=== PATIENT | male | born 1940 | race Caucasian/White ===

== ENCOUNTER 2020-09-13 08:27 | Inpatient (IN) | payer MEDICARE, SELFPAY ==
[2020-09-13 08:36] VITALS: BP 119/41; BP 136/84; PULSE 67; PULSE 86; RESP 18; TEMP 36.6; O2SAT 97; BMI 25.5
--- NOTE | 2020-09-13 08:39 | ECG_ITS ---
Test Reason : AMS Blood Pressure : / mmHG Vent. Rate : 069 BPM Atrial Rate : 069 BPM P-R Int : 156 ms QRS Dur : 106 ms QT Int : 438 ms P-R-T Axes : 056 -33 -14 degrees QTc Int : 469 ms Poor data quality Possible Normal sinus rhythm Left axis deviation Septal infarct , age undetermined ST & T wave abnormality, consider inferior ischemia Abnormal ECG No previous ECGs available Referred By: Chiqui Laguna Electronically Signed By:JANICE BLACKWELL MD
--- NOTE | 2020-09-13 08:39 | CT_ITS ---
EXAMINATION: CT CERVICAL SPINE WITHOUT CONTRAST; UNENHANCED CT OF THE HEAD. CLINICAL INFORMATION: Fall. Altered mental status. COMPARISON: None TECHNIQUE: Routine unenhanced CT of the head with multiple coronal and sagittal reformatted images; routine unenhanced CT of the cervical spine with multiple coronal and sagittal reformatted images. This CT examination was performed using dose optimization techniques as appropriate, variously including the following: *Automated exposure control *Adjustment of mA and/or kV according to patient size (this includes techniques or standardized protocols for targeted exams where dose is matched to indication/reason for exam; i.e. extremities or head) *Use of iterative reconstruction technique DLP: 1680 mGy-cm FINDINGS: CT head: Images are suboptimal secondary to motion artifact. Moderate diffuse commensurate prominence of ventricles and sulci is noted. No intracranial hemorrhage, tumors or acute infarcts are noted. Moderate periventricular white matter patchy hypodensities are visualized. Segmental calcific atherosclerosis is present in the cavernous portions of the internal carotid arteries and in the proximal vertebral segments of the vertebral arteries. Bilateral ocular lens extractions are identified. Mild focal subcutaneous reticulation is present in the left parietal region. No significant opacification of the visualized paranasal sinuses, mastoid air cells and middle ear cavities is identified. CT cervical spine: Images are suboptimal secondary to motion artifact. No fractures or acute appearing subluxations are noted. Multilevel intervertebral disc space narrowing and endplate osteophytosis is noted with prominent findings present at C3-C4 C5-C6 and C6-C7. Benign-appearing cystic and sclerotic changes are present in the dens in prominence of the pannus posterior to the dens is noted which may represent chronic arthropathic changes. Moderate bilateral carotid bulb calcific atherosclerotic plaques are visualized. Visualized lung apices are clear. CT/CT cervical spine wo con IMPRESSION: CT head: 1. No acute intracranial abnormalities. 2. Moderate white matter chronic small vessel ischemic disease and mild/moderate diffuse parenchymal volume loss the brain. 3. Mild focal extracranial left parietal soft tissue inflammatory changes. CT cervical spine: 1. No acute abnormalities identified. 2. Multilevel chronic spondylosis. 3. Partial visualization of moderate bilateral carotid bulb calcific atherosclerotic plaques.
--- NOTE | 2020-09-13 08:47 | ED.AMS ---
HPI - Altered Mental Status General Chief Complaint: Altered Mental Status Stated Complaint: fall Time Seen by Provider: 09/13/20 08:36 History of Present Illness HPI narrative: Patient is a 80-year-old male with a history of dementia history of agitation. [facility]. Patient is sent to a nearby skilled nursing facility. Noted to have low blood pressure. Question diminished mental status. e agitation. Sent in for further evaluation. No fever no chills no coughing or congestion. No vomiting. Patient from home. No bloody stool. Question started on Remeron last night. MD complaint: altered mental status Related Data Home Medications Medication Instructions Recorded Confirmed Humalog U-100 Insulin 4 units SUBCUT TIDWMEAL 09/13/20 09/13/20 acetaminophen 650 mg PO Q6H PRN MDD 3 gm 09/13/20 09/13/20 aspirin 325 mg PO DAILY 09/13/20 09/13/20 bisacodyl 10 mg CO DAILY PRN 09/13/20 09/13/20 haloperidol [Haldol] 2 mg PO TID PRN 09/13/20 09/13/20 insulin glargine [Lantus Solostar 6 unit SUBCUT DAILY 09/13/20 09/13/20 U-100 Insulin] lorazepam 1 mg PO BEDTIME 09/13/20 09/13/20 lorazepam 1 mg PO BID PRN 09/13/20 09/13/20 magnesium hydroxide [Milk of 30 ml PO DAILY PRN 09/13/20 09/13/20 Magnesia] metoprolol tartrate 25 mg PO BID 09/13/20 09/13/20 mirtazapine 7.5 mg PO BEDTIME 09/13/20 09/13/20 nystatin 100,000 unit TOPICAL BID 09/13/20 09/13/20 Allergies Allergy/AdvReac Type Severity Reaction Status Date / Time Hpugajv-Hcf-Qzx Reductase Allergy Intermediate unknown Verified 09/13/20 08:43 Inhibitor Review of Systems Review of Systems: Unable to obtain review systems secondary to patient's condition Yes Unobtainable due to mental condition PMFSH Past Medical History Medical History (Updated 09/13/20 @ 12:13 by Chiqui Laguna MD) CKD (chronic kidney disease), stage III Dementia Diabetes Social History Social History Advance Directives: No Advance Directives Information Provided: No Physical Exam Vital Signs: Vital Signs: Last Vital Signs Temp 97.8 F 09/13/20 08:36 Pulse 71 09/13/20 11:45 Resp 16 09/13/20 11:45 BP 162/63 H 09/13/20 11:45 Pulse Ox 100 09/13/20 11:45 Body Mass Index 25.5 Appearance: Alert. Oriented to self only. No acute distress. Eyes: Pupils equal, round and reactive to light. ENT: Pharynx normal. Neck: Normal inspection. Neck supple. No lymph nodes noted. No crepitus CVS: Normal heart rate and rhythm. Pulses normal. Normal S1 and S2 Respiratory: No respiratory distress. Breath sounds normal. No Wheezing. No rales Abdomen: Soft and nontender. No rigidity. No distention. good BS x4 Skin: Skin warm and dry. Normal skin color. Normal skin turgor. Extremities: No lower extremity edema. Neurovascular intact to all extremities. No Lacerations. No Rash Neuro: Oriented x1. No motor deficit. No sensory deficit. Moving all extermities. No slurred speech MDM - Altered Mental Status MDM Narrative Medical decision making narrative: Patient's sugar was greater than 100 no evidence for hypoglycemia. CT scan of the head did not show any acute evidence of bleeding. No mass. Patient's electrolytes showed an elevation in BUN and creatinine 68 and 3. Consistent with having dehydration. Patient's old labs from [place] was reviewed. It showed an elevated BUN and creatinine of 50 and 1.9. No coughing congestion upper respiratory symptom, but a COVID test was sent. Patient will be given IV fluid hydration. Will admit for further evaluation for possible syncope dehydration hypotension. Will obtain a urine when available. Chest x-ray showed no focal infiltrate Lab Data Result diagrams: 09/13/20 09:03 09/13/20 09:03 Labs: Lab Results 09/13/20 09/13/20 09/13/20 Range/Units 09:03 09:03 09:03 WBC 10.2 (4.8-10.8) X10*3/uL RBC 3.63 L (4.60-5.80) X10*6/uL Hgb 10.8 L (14.0-18.0) g/dl Hct 32.5 L (42-52) % MCV 89.5 (80-98) fL MCH 29.8 (27.0-33.0) pg MCHC 33.2 (31.0-36.0) g/dl RDW 12.0 (11.0-16.0) % Plt Count 231 (160-400) X10*3/uL MPV 9.8 (9.4-12.4) fL Immature Gran % (Auto) 0.6 H (0.0-0.4) % Neut % (Auto) 81.0 H (45-73) % Lymph % (Auto) 12.3 L (20-40) % [place] % (Auto) 5.6 (2-11) % Eos % (Auto) 0.3 (0-4) % Baso % (Auto) 0.2 (0-2) % Lymph # (Auto) 1.3 (1.2-4.9) X10*3/uL [place] # (Auto) 0.6 (0.1-1.2) X10*3/uL Eos # (Auto) 0.0 (0.0-0.4) X10*3/uL Baso # (Auto) 0.0 (0.0-0.2) X10*3/uL Abs Immat Gran (auto) 0.06 H (0.00-0.03) X10*3/uL Absolute Neuts (auto) 8.3 (2.0-8.3) X10*3/uL Absolute Nucleated RBC 0.000 (0.0-0.012) X10*3/uL Nucleated RBC % (auto) 0.0 (0.0-0.2) /100WBC PT (10.8-13.0) SEC INR (0.9-1.1) Sodium 139 (135-145) mmol/L Potassium 5.1 (3.3-5.1) mmol/l Chloride 101 (96-108) mmol/L Carbon Dioxide 27 (22-29) mmol/L Anion Gap 16 (12-20) BUN 68 H (9-16) mg/dL Creatinine 3.10 H (0.5-1.4) mg/dL Estim Creat Clear Calc 22.1 Estimated GFR 20 Random Glucose 210 H (60-115) mg/dL Calcium 8.6 (8.4-10.2) mg/dL Total Bilirubin 0.8 (0.0-1.0) mg/dL Direct Bilirubin 0.4 (0.0-0.5) mg/dL AST 28 (5-37) U/L ALT 32 (0-40) U/L Alkaline Phosphatase 103 (39-117) U/L Troponin I High Sens 43.9 H (<3.5-35.0) ng/L Total Protein 6.8 (6.5-8.0) g/dL Albumin 3.8 (3.5-5.0) g/dL Urine Color Urine Appearance Urine pH (5.0-8.0) Ur Specific [place] (1.005-1.025) Urine Protein (NEG-TRACE) MG/DL Urine Glucose (UA) (NEG) MG/DL Urine Ketones (NEG) MG/DL Urine Blood (NEG) Urine Nitrite (NEG) Ur Leukocyte Esterase (NEG) Urine RBC (0) /HPF Urine WBC (0-4) /HPF Ur Squamous Epith Cells /LPF Amorphous Sediment /LPF Urine Bacteria /LPF COVID-19 ([facility]) (Negative) COVID-19 Clin Com 09/13/20 09/13/20 09/13/20 Range/Units 09:04 10:13 10:54 WBC (4.8-10.8) X10*3/uL RBC (4.60-5.80) X10*6/uL Hgb (14.0-18.0) g/dl Hct (42-52) % MCV (80-98) fL MCH (27.0-33.0) pg MCHC (31.0-36.0) g/dl RDW (11.0-16.0) % Plt Count (160-400) X10*3/uL MPV (9.4-12.4) fL Immature Gran % (Auto) (0.0-0.4) % Neut % (Auto) (45-73) % Lymph % (Auto) (20-40) % [place] % (Auto) (2-11) % Eos % (Auto) (0-4) % Baso % (Auto) (0-2) % Lymph # (Auto) (1.2-4.9) X10*3/uL [place] # (Auto) (0.1-1.2) X10*3/uL Eos # (Auto) (0.0-0.4) X10*3/uL Baso # (Auto) (0.0-0.2) X10*3/uL Abs Immat Gran (auto) (0.00-0.03) X10*3/uL Absolute Neuts (auto) (2.0-8.3) X10*3/uL Absolute Nucleated RBC (0.0-0.012) X10*3/uL Nucleated RBC % (auto) (0.0-0.2) /100WBC PT 13.3 H (10.8-13.0) SEC INR 1.1 (0.9-1.1) Sodium (135-145) mmol/L Potassium (3.3-5.1) mmol/l Chloride (96-108) mmol/L Carbon Dioxide (22-29) mmol/L Anion Gap (12-20) BUN (9-16) mg/dL Creatinine (0.5-1.4) mg/dL Estim Creat Clear Calc Estimated GFR Random Glucose (60-115) mg/dL Calcium (8.4-10.2) mg/dL Total Bilirubin (0.0-1.0) mg/dL Direct Bilirubin (0.0-0.5) mg/dL AST (5-37) U/L ALT (0-40) U/L Alkaline Phosphatase (39-117) U/L Troponin I High Sens (<3.5-35.0) ng/L Total Protein (6.5-8.0) g/dL Albumin (3.5-5.0) g/dL Urine Color YELLOW Urine Appearance CLEAR Urine pH 5.5 (5.0-8.0) Ur Specific [place] 1.025 (1.005-1.025) Urine Protein 1+ H (NEG-TRACE) MG/DL Urine Glucose (UA) NEG (NEG) MG/DL Urine Ketones NEG (NEG) MG/DL Urine Blood 3+ H (NEG) Urine Nitrite NEG (NEG) Ur Leukocyte Esterase NEG (NEG) Urine RBC 30-49 H (0) /HPF Urine WBC 0 (0-4) /HPF Ur Squamous Epith Cells NONE /LPF Amorphous Sediment 2+ /LPF Urine Bacteria NONE /LPF COVID-19 ([facility]) Negative (Negative) COVID-19 Clin Com See Note Critical Care Time Critical Care Time Total Critical Care Time: 40 Attestation: I have personally provided 40 minutes of critical care time exclusive of time spent on separately billable procedures. Time includes review of lab data, radiology results, discussion with consultants, and monitoring for potential decompensation. Interventions were performed as documented above Discharge Plan Discharge Clinical Impression: Dementia, Hypotension, Renal failure Patient Disposition: Admitted As Inpatient Prescriptions: No Action Humalog U-100 Insulin 4 units subcut TIDWMEAL RF: 0 nystatin 100,000 unit/gram Powder 100,000 unit TOPICAL BID RF: 0 aspirin 325 mg Tablet 325 mg PO DAILY RF: 0 mirtazapine 7.5 mg Tablet 7.5 mg PO BEDTIME RF: 0 Lantus Solostar U-100 Insulin 100 unit/mL (3 mL) Insulin Pen 6 unit SUBCUT DAILY RF: 0 metoprolol tartrate 25 mg PO BID RF: 0 lorazepam 1 mg Tablet 1 mg PO BEDTIME RF: 0 lorazepam 1 mg Tablet 1 mg PO BID PRN (Reason: Agitation) RF: 0 haloperidol [Haldol] 2 mg Tablet 2 mg PO TID PRN (Reason: Agitation) RF: 0 magnesium hydroxide [Milk of Magnesia] 400 mg/5 mL Suspension 30 ml PO DAILY PRN (Reason: Constipation) RF: 0 acetaminophen 325 mg Tablet 650 mg PO Q6H MDD 3 gm PRN (Reason: Fever Or Pain) RF: 0 bisacodyl 10 mg Suppository 10 mg CO DAILY PRN (Reason: Constipation) RF: 0
[2020-09-13 09:10] LABS: Basophils Percent Auto 0.2 % (0-2); Eosinophils Percent Auto 0.3 % (0-4); Hematocrit 32.5 % (42-52); Hemoglobin 10.8 g/dl (14.0-18.0); Imm Gran Abs Auto 0.06 X10*3/uL (0.00-0.03); Imm Gran Pct Auto 0.6 % (0.0-0.4); Lymphocytes Absolute Auto 1.3 X10*3/uL (1.2-4.9); Lymphocytes Percent Auto 12.3 % (20-40); MANUAL DIFF FLAG NO; Mean Corpuscular HGB Conc 33.2 g/dl (31.0-36.0); Mean Corpuscular Hemoglobin 29.8 pg (27.0-33.0); Mean Corpuscular Volume 89.5 fL (80-98); Mean Platelet Volume 9.8 fL (9.4-12.4); Monocytes Absolute Auto 0.6 X10*3/uL (0.1-1.2); Monocytes Percent Auto 5.6 % (2-11); Neutrophils Absolute Auto 8.3 X10*3/uL (2.0-8.3); Platelet Count 231 X10*3/uL (160-400); Red Blood Count 3.63 X10*6/uL (4.60-5.80); White Blood Count 10.2 X10*3/uL (4.8-10.8)
[2020-09-13 09:19] LABS: INTERNATIONAL NORM RATIO 1.1 (0.9-1.1); Prothrombin Time 13.3 SEC (10.8-13.0)
[2020-09-13 09:32] VITALS: BP 112/45; PULSE 63; RESP 14
--- NOTE | 2020-09-13 09:33 | PC.NURSE ---
PT IS LYING ON ED STRETCHER, HE IS VERBAL AT TIMES WITH NO CLEAR STATEMENT VSS HE HAD A CT SCAN, AWAITING RESULTS
[2020-09-13 09:35] LABS: Alanine Aminotransferase 32 U/L (0-40); Albumin Level 3.8 g/dL (3.5-5.0); Alkaline Phosphatase 103 U/L (39-117); Anion Gap 16 (12-20); Aspartate Amino Transferase 28 U/L (5-37); Bilirubin Direct 0.4 mg/dL (0.0-0.5); Bilirubin Total 0.8 mg/dL (0.0-1.0); Blood Urea Nitrogen 68 mg/dL (9-16); Calcium 8.6 mg/dL (8.4-10.2); Carbon Dioxide 27 mmol/L (22-29); Chloride 101 mmol/L (96-108); Creatinine Clr Calc Pharmacy 22.1; Estimated Glomerular Filt Rate 20; Glucose Random 210 mg/dL (60-115); Potassium 5.1 mmol/l (3.3-5.1); Sodium 139 mmol/L (135-145); Total Protein 6.8 g/dL (6.5-8.0)
[2020-09-13 10:27] LABS: Glucose Urine UA NEG (NEG); Leukocyte Esterase Urine NEG (NEG); Nitrite Urine NEG (NEG); PH 5.5 (5.0-8.0); Specific Gravity - Urine 1.025 (1.005-1.025); Urine Blood 3+ (NEG); Urine Ketones NEG (NEG); Urine Protein 1+ MG/DL (NEG-TRACE)
[2020-09-13 10:29] LABS: Appearance Urine CLEAR; Color Urine YELLOW
[2020-09-13 10:49] LABS: RBC Urine 30-49 /HPF (0); WBC Urine 0 /HPF (0-4)
[2020-09-13 10:50] LABS: Amorphous Sediment Urine 2+ /LPF
[2020-09-13] MEDS: 0.9 % Sodium Chloride 1,000 ML 999 ML IVCONT (10:51)
--- NOTE | 2020-09-13 10:54 | XR_ITS ---
EXAMINATION: XR CHEST CLINICAL INFORMATION: SOB. COMPARISON: None TECHNIQUE: Frontal view of the chest was obtained. FINDINGS: No significant abnormality is noted involving the heart, lungs, mediastinum, bony thorax or soft tissues. XR/XR chest 1V IMPRESSION: Unremarkable chest examination.
[2020-09-13 11:36] LABS: COVID-19 Test Negative (Negative)
[2020-09-13 11:45] VITALS: BP 162/63; PULSE 71; RESP 16; O2SAT 100
[2020-09-13 11:50] LABS: Troponin-I High Sensitivity 43.9 ng/L (<3.5-35.0)
[2020-09-13] MEDS: HaloperidoL 1 MG TABLET 2 MG PO ×2 (12:12→20:16)
[2020-09-13] MEDS: LORazepam 0.5 MG TABLET PO (12:12)
--- NOTE | 2020-09-13 12:13 | PC.NURSE ---
patient medicated with po ativan and haldol per provider order, pt does normally take this medication per nursing facility med req. will continue to monitor.
--- NOTE | 2020-09-13 12:50 | P.HPHOSP_ITS ---
History of Present Illness Date of Service: 09/13/20 Chief Complaint: unresponsive 80M sent in from a rehab for unresponsiveness and hypotension. Patient has advanced dementia. He had been living at home with his and daughter until August 27 2020. At that time patient started having aggressive behavior and was admitted to [facility]. He had been recently discharged to nursing home facility, at nursing home facility patient was agitated, had 2 falls, then had a period of unresponsiveness where his systolic blood pressure was in the 70s. Patient's notes that patient has issues with labile blood pressures, and has been taken off all blood pressure medications. It is unclear whether he is receiving metoprolol and nursing home facility. In ED patient's blood pressure is back to normal and he is alert and disoriented as his baseline. He was noted to have some acute kidney injury, with creatinine of 3.1, which is slightly above baseline of 1.8 to 2. Review of Systems Review of Systems: Constitutional: Denies fever, denies Chills Eyes: denies blurry vision ENT: denies sore throat CVS: denies chest pain Respiratory: Denies dyspnea GI: no abdominal pain : denies dysuria MSK: denies neck pain Skin: denies rash Neuro: denies specific motor weakness Psych: denies suicidal ideation Endocrine: denies heat/cold intoleratnce Hematologic: denies easy bleeding Allergy: denies hives PMFSH Medical History Anaplasmosis CKD (chronic kidney disease), stage IV Dementia Diabetes Orthostatic hypotension Family History Father Dementia Surgical History History of vitrectomy Social History Alcohol intake: never Smoking Status: Never smoker Use of substances other than those prescribed or required for medical reasons: No Advance Directives: No Advance Directives Information Provided: No Meds Allergies Allergy/AdvReac Type Severity Reaction Status Date / Time Zxsnvau-Fry-Lhj Reductase Allergy Intermediate unknown Verified 09/13/20 08:43 Inhibitor Home Medications Medication Instructions Recorded Confirmed Type Humalog U-100 Insulin 4 units SUBCUT TIDWMEAL 09/13/20 09/13/20 History acetaminophen 650 mg PO Q6H PRN MDD 3 gm 09/13/20 09/13/20 History aspirin 325 mg PO DAILY 09/13/20 09/13/20 History bisacodyl 10 mg VT DAILY PRN 09/13/20 09/13/20 History haloperidol [Haldol] 2 mg PO TID PRN 09/13/20 09/13/20 History insulin glargine [Lantus Solostar 6 unit SUBCUT DAILY 09/13/20 09/13/20 History U-100 Insulin] lorazepam 1 mg PO BEDTIME 09/13/20 09/13/20 History lorazepam 1 mg PO BID PRN 09/13/20 09/13/20 History magnesium hydroxide [Milk of 30 ml PO DAILY PRN 09/13/20 09/13/20 History Magnesia] metoprolol tartrate 25 mg PO BID 09/13/20 09/13/20 History mirtazapine 7.5 mg PO BEDTIME 09/13/20 09/13/20 History nystatin 100,000 unit TOPICAL BID 09/13/20 09/13/20 History Physical Exam Vital Signs and Narrative: Vital Signs: Last Vital Signs Temp 97.8 F 09/13/20 08:36 Pulse 71 09/13/20 11:45 Resp 16 09/13/20 11:45 BP 162/63 H 09/13/20 11:45 Pulse Ox 100 09/13/20 11:45 Body Mass Index 25.5 General: no acute distress HEENT: atraumatic Neck: normal to visual inspection CVS: S1, S2, RRR Resp: CTA bilateral Chest: non tender GI: soft, non tender, non distended : no CVA tenderness Skin: no rashes Extremities: no edema Neuro: disoriented, at baseline Psych: impaired insight Results Labs CBC and Chem 7: 09/13/20 09:03 09/13/20 09:03 Labs: Laboratory Results - last 24 hr 09/13/20 09/13/20 09/13/20 09:03 09:03 09:03 MCV 89.5 MCH 29.8 MCHC 33.2 RDW 12.0 Plt Count 231 MPV 9.8 Immature Gran % (Auto) 0.6 H Neut % (Auto) 81.0 H Lymph % (Auto) 12.3 L [place] % (Auto) 5.6 Eos % (Auto) 0.3 Baso % (Auto) 0.2 Lymph # (Auto) 1.3 [place] # (Auto) 0.6 Eos # (Auto) 0.0 Baso # (Auto) 0.0 Abs Immat Gran (auto) 0.06 H Absolute Neuts (auto) 8.3 Absolute Nucleated RBC 0.000 Nucleated RBC % (auto) 0.0 PT INR Anion Gap 16 Estim Creat Clear Calc 22.1 Estimated GFR 20 Random Glucose 210 H Calcium 8.6 Total Bilirubin 0.8 Direct Bilirubin 0.4 AST 28 ALT 32 Alkaline Phosphatase 103 Troponin I High Sens 43.9 H Total Protein 6.8 Albumin 3.8 Urine Color Urine Appearance Urine pH Ur Specific [place] Urine Protein Urine Glucose (UA) Urine Ketones Urine Blood Urine Nitrite Ur Leukocyte Esterase Urine RBC Urine WBC Ur Squamous Epith Cells Amorphous Sediment Urine Bacteria COVID-19 ([facility] CAR[facility]) COVID-19 [employer] Com 09/13/20 09/13/20 09/13/20 09:04 10:13 10:54 MCV MCH MCHC RDW Plt Count MPV Immature Gran % (Auto) Neut % (Auto) Lymph % (Auto) [place] % (Auto) Eos % (Auto) Baso % (Auto) Lymph # (Auto) [place] # (Auto) Eos # (Auto) Baso # (Auto) Abs Immat Gran (auto) Absolute Neuts (auto) Absolute Nucleated RBC Nucleated RBC % (auto) PT 13.3 H INR 1.1 Anion Gap Estim Creat Clear Calc Estimated GFR Random Glucose Calcium Total Bilirubin Direct Bilirubin AST ALT Alkaline Phosphatase Troponin I High Sens Total Protein Albumin Urine Color YELLOW Urine Appearance CLEAR Urine pH 5.5 Ur Specific [place] 1.025 Urine Protein 1+ H Urine Glucose (UA) NEG Urine Ketones NEG Urine Blood 3+ H Urine Nitrite NEG Ur Leukocyte Esterase NEG Urine RBC 30-49 H Urine WBC 0 Ur Squamous Epith Cells NONE Amorphous Sediment 2+ Urine Bacteria NONE COVID-19 ([facility] CAR[facility]) Negative COVID-19 Clin Com See Note Imaging Radiologist's Impressions: Impressions Cervical Spine CT 09/13/20 08:39 IMPRESSION: CT head: 1. No acute intracranial abnormalities. 2. Moderate white matter chronic small vessel ischemic disease and mild/moderate diffuse parenchymal volume loss the brain. 3. Mild focal extracranial left parietal soft tissue inflammatory changes. CT cervical spine: 1. No acute abnormalities identified. 2. Multilevel chronic spondylosis. 3. Partial visualization of moderate bilateral carotid bulb calcific atherosclerotic plaques. Head CT 09/13/20 08:39 IMPRESSION: CT head: 1. No acute intracranial abnormalities. 2. Moderate white matter chronic small vessel ischemic disease and mild/moderate diffuse parenchymal volume loss the brain. 3. Mild focal extracranial left parietal soft tissue inflammatory changes. CT cervical spine: 1. No acute abnormalities identified. 2. Multilevel chronic spondylosis. 3. Partial visualization of moderate bilateral carotid bulb calcific atherosclerotic plaques. Chest X-Ray 09/13/20 10:54 IMPRESSION: Unremarkable chest examination. Assessment and Plan (1) Orthostatic hypotension: Status: Acute (2) CKD (chronic kidney disease), stage IV: Problem details: baseline around 1.8-2 Status: Acute (3) Renal failure: Status: Deleted (4) Diabetes: Status: Acute (5) SOBIA (acute kidney injury): Status: Acute (6) Hypotension: Status: Deleted (7) Dementia: Status: Acute 80M presented with syncope, hypotension, sobia/CKD IV Syncope Likely due to orthostatic hypotension complicated by acute on chronic kidney injury IV fluids Monitor BMP Check orthostatics If no significant supine hypertension will consider midodrine or [place]ine[place] DC metoprolol Dementia with behavioral disturbances Currently stable Continue with Haldol, lorazepam, Remeron Brittle diabetes Glargine 6 units daily Insulin sliding scale No history of coronary disease or CVA will discontinue aspirin DNR DNI
--- NOTE | 2020-09-13 13:54 | PC.NURSE ---
Patient repositioned with help of tech
--- NOTE | 2020-09-13 13:56 | PC.NURSE ---
patient linens changed, and positioned with help of tech,
--- NOTE | 2020-09-13 14:15 | PC.NURSE ---
report called to floor, pt to be transported shortly
[2020-09-13 14:57] VITALS: BP 145/56; PULSE 60; RESP 14; TEMP 36; O2SAT 99
[2020-09-13] MEDS: Lactated Ringers 1,000 ML 80 ML IVCONT (15:37)
[2020-09-13] MEDS: Enoxaparin Sodium 30 MG/0.3 ML SYRINGE SUBCUT (15:42)
[2020-09-13] MEDS: 0.9 % Sodium Chloride Flush 3 ML SYRINGE IVFLUSH (15:43)
[2020-09-13] MEDS: Insulin Lispro 100 UNIT/ML 3 ML VIAL SUBCUT (17:13)
--- NOTE | 2020-09-13 19:35 | PC.NURSE ---
While trying to put prevent patient getting out of bed for patient safety, patient became very combative, [employer] supervisor made aware and got a 1 to 1 sitter for the patient.
[2020-09-13 19:45] VITALS: BP 134/76; PULSE 66; RESP 20; TEMP 36.3; O2SAT 99
[2020-09-13] MEDS: LORazepam 1 MG TABLET PO (20:16)
[2020-09-13] MEDS: Mirtazapine 7.5 MG TABLET PO (20:16)
[2020-09-13 20:55] LABS: Glucose, Whole Blood 168 mg/dL (60-115)
[2020-09-13 20:55] LABS: Glucose, Whole Blood 94 mg/dL (60-115)
[2020-09-13 20:55] LABS: Glucose, Whole Blood 35 mg/dL (60-115)
[2020-09-14] VITALS (8 sets, daily range): BP systolic 151–183; BP diastolic 64–81; PULSE 61–65; RESP 16–19; TEMP 35.9–36.4; O2SAT 90–100
--- NOTE | 2020-09-14 | CT_ITS ---
EXAMINATION: CT ABDOMEN AND PELVIS WITHOUT CONTRAST CLINICAL INFORMATION: Nausea and vomiting. COMPARISON: None. TECHNIQUE: Multidetector volumetric imaging was performed from the superior aspect of the liver through the pubic symphysis. Sagittal and coronal reformatted images were obtained on the technologist workstation. This CT examination was performed using dose optimization techniques as appropriate, variously including the following: *Automated exposure control *Adjustment of mA and/or kV according to patient size (this includes techniques or standardized protocols for targeted exams where dose is matched to indication/reason for exam; i.e. extremities or head) *Use of iterative reconstruction technique DLP: 894.36 mGy-cm. FINDINGS: LUNG BASES: Evaluation limited by motion artifact. 0.4 cm solid noncalcified right fissure-based nodule seen, likely a lymph node (series 4, image 1). Mild linear atelectatic changes seen in both lung bases. LIVER, GALLBLADDER, AND BILIARY TREE: The liver is normal in size, shape, and attenuation. No focal hepatic lesion on noncontrast imaging. No biliary ductal dilatation is present. The gallbladder is unremarkable with no evidence of radiopaque gallstones, gallbladder wall thickening, or obvious pericholecystic inflammatory changes. PANCREAS: Atrophic and fatty infiltrated. SPLEEN, ADRENAL GLANDS: Unremarkable on noncontrast imaging. KIDNEYS AND URETERS: The kidneys are normal in size, shape, and attenuation. No hydronephrosis, hydroureter, or calculi seen. Tiny calcific densities in the kidneys are likely vascular in etiology. No perinephric stranding. BLADDER: Markedly distended, extending up to the level of the umbilicus. PELVIC VISCERA: Prostate gland measures 4.6 x 4.4 x 5.4 cm (72 mL volume) GASTROINTESTINAL TRACT: The small and large bowel are decompressed. Large amount of fecal material is seen throughout the colon and rectum. Bowel loops otherwise unremarkable. The appendix is not visualized. ABDOMINAL WALL: Tiny fat-containing umbilical hernia is seen. LYMPH NODES, VASCULAR: Severe coronary artery calcifications partially included in the lower chest. Moderate atherosclerotic calcifications of the aorta and branch vessels in the abdomen and pelvis seen. OSSEOUS STRUCTURES: Minimal convex right thoracolumbar curvature, possibly positional. Prominent vertebral spurring seen in the lower thoracic spine and throughout the lumbar spine. Severe degenerative disc disease at L4-5 and L5-S1 and at the T10-11. No suspicious bone findings. CT/CT abdomen pelvis wo con IMPRESSION: 1. Markedly distended urinary bladder, extending up to the level of the umbilicus. Consider catheter decompression. Findings may be related to outlet obstruction from an enlarged prostate gland. Clinical correlation requested. 2. Large amount of fecal material throughout the colon and rectum. 3. Severe coronary artery calcifications. 4. Other incidental findings include a benign-appearing fissural based right lung nodule, likely a lymph node, atrophic and fatty infiltrated pancreas, and a tiny fat-containing umbilical hernia.
--- NOTE | 2020-09-14 06:21 | PM.EVENT ---
Event Note Date of Service: 09/14/20 Event Note: Patient had 3 episodes of coffee-ground emesis overnight. I will make her NPO, start her on IV PPI b.i.d., will hold enoxaparin, and consult GI Patient has also been very agitated overnight, now that she is NPO will give her 1 dose of Ativan for agitation
--- NOTE | 2020-09-14 06:25 | PC.NURSE ---
P= Patient had 3 episodes of coffee ground emesis this morning. He was also agitated with numerous attempts to get oob. I= MD notified. New orders for GI consult, NPO diet, Protonix and Ativan IV have been put in place. E= Patient will continue to be monitored closely
[2020-09-14] MEDS: Pantoprazole Sodium 40 MG/10 ML VIAL IVPUSH ×2 (07:15→16:59)
[2020-09-14] MEDS: LORazepam 2 MG/ML VIAL 0.5 MG IVPUSH (07:15)
[2020-09-14 07:32] LABS: MANUAL DIFF FLAG NO
[2020-09-14 07:35] LABS: Basophils Percent Auto 0.1 % (0-2); Eosinophils Percent Auto 0.2 % (0-4); Hematocrit 32.6 % (42-52); Hemoglobin 10.7 g/dl (14.0-18.0); Imm Gran Abs Auto 0.03 X10*3/uL (0.00-0.03); Imm Gran Pct Auto 0.3 % (0.0-0.4); Lymphocytes Absolute Auto 0.8 X10*3/uL (1.2-4.9); Lymphocytes Percent Auto 8.2 % (20-40); Mean Corpuscular HGB Conc 32.8 g/dl (31.0-36.0); Mean Corpuscular Hemoglobin 29.2 pg (27.0-33.0); Mean Corpuscular Volume 89.1 fL (80-98); Monocytes Absolute Auto 0.3 X10*3/uL (0.1-1.2); Monocytes Percent Auto 3.2 % (2-11); Neutrophils Absolute Auto 8.4 X10*3/uL (2.0-8.3); Platelet Count 232 X10*3/uL (160-400); Red Blood Count 3.66 X10*6/uL (4.60-5.80); Red Cell Distribution Width 11.9 % (11.0-16.0); White Blood Count 9.6 X10*3/uL (4.8-10.8)
[2020-09-14 07:57] LABS: Anion Gap 17 (12-20); Blood Urea Nitrogen 55 mg/dL (9-16); Calcium 8.2 mg/dL (8.4-10.2); Carbon Dioxide 25 mmol/L (22-29); Chloride 103 mmol/L (96-108); Creatinine Clr Calc Pharmacy 31.2; Estimated Glomerular Filt Rate 29; Glucose Random 195 mg/dL (60-115); Potassium 4.9 mmol/l (3.3-5.1); Sodium 140 mmol/L (135-145)
[2020-09-14 08:19] LABS: TSH reflex Free T4 2.59 mIU/mL (0.32-4.0)
[2020-09-14 08:23] LABS: Glucose, Whole Blood 192 mg/dL (60-115)
--- NOTE | 2020-09-14 09:36 | MHC.CM.PN ---
/HCP ([phone]) COPY IN PAPER CHART. PATIENT IS HERE FROM [facility] HE IS THERE FROM [facility] STAY AT [facility]. REFERRAL PLACED TO RETURN TO FACILITY. IS IN ATTEMPTS TO SECURE A BED AT BED AT [facility], AND HOPES THAT [facility] THEN. FAMILY IS FROM [facility]. CASE MANAGEMENT FOLLOWING. IMM 09/14 IN CHART
--- NOTE | 2020-09-14 09:39 | HO.PM.IMPN ---
Subjective Subjective Date of Service: 09/14/20 Interval History: coffee ground emesis and agitation overnight Cardiovascular Cardiovascular: Reports no additional cardiovascular complaints Gastrointestinal Gastrointestinal: Reports no additional gastrointestinal complaints Physical Exam Vital Signs: Vital Signs: Last Vital Signs Temp 97.6 F 09/14/20 07:44 Pulse 63 09/14/20 07:44 Resp 18 09/14/20 07:44 BP 170/67 H 09/14/20 07:44 Pulse Ox 100 09/14/20 07:44 Body Mass Index 25.5 General: disoriented, no acute distress Resp: CTA bilateral CVS: S1,S2,RRR GI: soft, non tender, non distended Neuro: motor grossly intact Psych: impaired insight Objective Data Current Medications Generic Name Dose Route Start Last Admin Trade Name Freq PRN Reason Stop Dose Admin Acetaminophen 650 mg 09/13/20 14:43 Acetaminophen 325 Mg Tablet PO Q6H PRN Fever Or Pain Bisacodyl 10 mg 09/13/20 14:43 Bisacodyl 10 Mg Supp.Rect IL DAILY PRN Constipation Haloperidol 2 mg 09/13/20 14:46 09/13/20 20:16 Haloperidol 1 Mg Tablet PO 2 mg TID PRN Administration Agitation Lactated Ringer's 1,000 mls @ 80 mls/hr 09/13/20 14:43 09/14/20 09:19 Lr IVCONT Not Given .[id number] [facility] Insulin Glargine 6 unit 09/14/20 09:00 Insulin Glargine,Hum.Rec.Anlog 100 Unit/Ml 10 Ml Vial SUBCUT DAILY [facility] Insulin Human Lispro 0 unit 09/13/20 16:30 09/14/20 09:17 Insulin Lispro 100 Unit/Ml 3 Ml Vial SUBCUT Not Given QIDACHS [facility] Protocol Lorazepam 1 mg 09/13/20 14:43 Lorazepam 1 Mg Tablet PO BID PRN Agitation Lorazepam 1 mg 09/13/20 21:00 09/13/20 20:16 Lorazepam 1 Mg Tablet PO 1 mg BEDTIME RENATA Administration Magnesium Hydroxide 30 ml 09/13/20 14:43 Milk Of Magnesia 30 Ml Oral.Susp PO DAILY PRN Constipation Mirtazapine 7.5 mg 09/13/20 21:00 09/13/20 20:16 Mirtazapine 7.5 Mg Tablet PO 7.5 mg BEDTIME RENATA Administration Pantoprazole Sodium 40 mg 12/26/20 06:30 09/14/20 07:15 Pantoprazole Sodium 40 Mg/10 Ml Vial IVPUSH 40 mg BID@0630,1630 RENATA Administration Sodium Chloride 3 ml 09/13/20 16:00 09/14/20 09:19 0.9 % Sodium Chloride Flush 3 Ml Syringe IVFLUSH Not Given QSHIFT [facility] Labs CBC & Chem 7: 09/14/20 07:02 09/14/20 07:02 Assessment and Plan (1) Orthostatic hypotension: Status: Acute (2) CKD (chronic kidney disease), stage IV: Problem details: baseline around 1.8-2 Status: Acute (3) Renal failure: Status: Deleted (4) Diabetes: Status: Acute (5) BRANDYN (acute kidney injury): Status: Acute (6) Hypotension: Status: Deleted (7) Dementia: Status: Acute Assessment and Plan: 80M presented with syncope, hypotension, brandyn/CKD IV Syncope Likely due to orthostatic hypotension complicated by acute on chronic kidney injury IV fluids Monitor BMP Check orthostatics has supine hypertension will hold off on midodrine or Florinef off metoprolol creaitnine back close to baseline ?coffee ground emesis hgb stable, so not sure if actually bleeding, check gastric occult blood, continue ppi, monitor hgb, gi eval, check ct abd Dementia with behavioral disturbances Currently stable Continue with Haldol, lorazepam, Remeron Brittle diabetes Glargine 6 units daily Insulin sliding scale No history of coronary disease or CVA discontinued aspirin DNR DNI
--- NOTE | 2020-09-14 11:16 | PM.GICN ---
History of Present Illness Data of Consult Service Date: 09/14/20 Requesting physician: Ilda Bonilla Primary Care Provider: Unknown Physician HPI Reason for consult: hematemesis 80M w hx of DM, CKD, and advanced dementia who I am asked to see for assessment of hematemesis. Hx not available from patient, taken from chart review and care team. Initially admitted from rehab facility for unresponsiveness and hypotension. He had been recently discharged to custodial facility, at custodial facility patient was agitated, had 2 falls, then had a period of unresponsiveness where his systolic blood pressure was in the 70s. Apparently the patient has issues with labile blood pressures, and had been taken off all blood pressure medications He was noted to have some acute kidney injury, with creatinine of 3.1, which is slightly above baseline of 1.8 to 2. Last night he had few epsiodes of coffee ground emesis but he was noted to have constipation and urine retention. HGB has remained stable. Review of Systems Review of Systems: Yes Unobtainable due to mental status PMFSH Past Medical History Medical History Anaplasmosis CKD (chronic kidney disease), stage IV Dementia Diabetes Orthostatic hypotension Family History Family History Father Dementia Surgical History Surgical History History of vitrectomy Social History Social History Household Members: Other Household Members Other:: [facility] Housing: Longterm Housing Other:: [facility] Alcohol intake: never Smoking Status: Never smoker Use of substances other than those prescribed or required for medical reasons: Unknown Currently Displaying Signs/Symptoms of Drug Intoxication Withdrawal: No Advance Directives: No Advance Directives Information Provided: No Do you have thoughts of harming others: None Do you have a plan to hurt others: No Plan Recently lost weight without trying: Unsure service: Yes Current occupational status: retired Meds Allergies Allergy/AdvReac Type Severity Reaction Status Date / Time [id number]-Kds Reductase Allergy Intermediate unknown Verified 09/13/20 08:43 Inhibitor Home Medications Medication Instructions Recorded Confirmed Type Humalog U-100 Insulin 4 units SUBCUT TIDWMEAL 09/13/20 09/13/20 History acetaminophen 650 mg PO Q6H PRN MDD 3 gm 09/13/20 09/13/20 History aspirin 325 mg PO DAILY 09/13/20 09/13/20 History bisacodyl 10 mg AL DAILY PRN 09/13/20 09/13/20 History haloperidol [Haldol] 2 mg PO TID PRN 09/13/20 09/13/20 History insulin glargine [Lantus Solostar 6 unit SUBCUT DAILY 09/13/20 09/13/20 History U-100 Insulin] lorazepam 1 mg PO BEDTIME 09/13/20 09/13/20 History lorazepam 1 mg PO BID PRN 09/13/20 09/13/20 History magnesium hydroxide [Milk of 30 ml PO DAILY PRN 09/13/20 09/13/20 History Magnesia] metoprolol tartrate 25 mg PO BID 09/13/20 09/13/20 History mirtazapine 7.5 mg PO BEDTIME 09/13/20 09/13/20 History nystatin 100,000 unit TOPICAL BID 09/13/20 09/13/20 History Physical Exam Vital Signs: Vital Signs: Last Vital Signs Temp 97.6 F 09/14/20 07:44 Pulse 63 09/14/20 07:44 Resp 18 09/14/20 07:44 BP 170/67 H 09/14/20 07:44 Pulse Ox 100 09/14/20 07:44 Body Mass Index 25.5 Const: General: combative Nutritional Appearance: average body habitus Orientation/consciousness: No patient oriented x3 Limitations: altered mental status Eyes: General: appearance normal, both eyes and all related structures Chest: Chest palpation & inspection: normal inspection of the chest Resp: Effort & Inspection: normal respiratory effort Auscultation: clear to auscultation bilaterally Cardio: Jugular venous distension: no JVD Rate: regular rate GI: Inspection: Yes normal to inspection Percussion: Yes normal to percussion Auscultation: normal bowel sounds Skin: Rashes: no rashes Neuro: General: No patient oriented x3 Cognition (Neuro): abnormal cognition Psych: Appearance: disheveled Mental Status: mental status grossly abnormal Results Labs CBC & Chem 7: 09/14/20 07:02 09/14/20 07:02 Labs: Short CBC 09/14/20 Range/Units 07:02 WBC 9.6 (4.8-10.8) X10*3/uL Hgb 10.7 L (14.0-18.0) g/dl Hct 32.6 L (42-52) % Plt Count 232 (160-400) X10*3/uL BMP 09/14/20 07:02 Sodium 140 Potassium 4.9 Chloride 103 Carbon Dioxide 25 BUN 55 H Creatinine 2.20 H Calcium 8.2 L Assessment and Plan (1) Hematemesis: Status: Acute 1/Hematemesis prob 2/2 constipation, may have underlying esophagitis, gastritis, HGB has been stable, not reported to have any melena by nursing staff PLAN: 1/ cont to monitor HGB 2/ if evidence of overt GI bleeding with dwn trending HGB then can consider EGD for assessment, meantime can use PPI and carafate BID
[2020-09-14] MEDS: bisacodyL 10 MG SUPP.RECT PR (11:44)
[2020-09-14] MEDS: Insulin Lispro 100 UNIT/ML 3 ML VIAL SUBCUT ×2 (11:45→17:00)
[2020-09-14 11:52] LABS: Glucose, Whole Blood 215 mg/dL (60-115)
[2020-09-14] MEDS: Lactated Ringers 1,000 ML 80 ML IVCONT (15:58)
[2020-09-14 16:27] LABS: Glucose, Whole Blood 178 mg/dL (60-115)
[2020-09-14 21:06] LABS: Glucose, Whole Blood 130 mg/dL (60-115)
[2020-09-14] MEDS: LORazepam 1 MG TABLET PO (22:01)
[2020-09-14] MEDS: Mirtazapine 7.5 MG TABLET PO (22:01)
[2020-09-15 03:32] VITALS: BP 131/65; PULSE 68; RESP 20; TEMP 36.8; O2SAT 95
[2020-09-15] MEDS: Lactated Ringers 1,000 ML 80 ML IVCONT (04:49)
[2020-09-15] MEDS: Pantoprazole Sodium 40 MG/10 ML VIAL IVPUSH (06:10)
[2020-09-15 07:18] LABS: Basophils Percent Auto 0.2 % (0-2); Eosinophils Absolute Auto 0.1 X10*3/uL (0.0-0.4); Eosinophils Percent Auto 0.7 % (0-4); Hematocrit 33.8 % (42-52); Hemoglobin 11.3 g/dl (14.0-18.0); Imm Gran Abs Auto 0.04 X10*3/uL (0.00-0.03); Imm Gran Pct Auto 0.4 % (0.0-0.4); Lymphocytes Absolute Auto 1.5 X10*3/uL (1.2-4.9); Lymphocytes Percent Auto 13.5 % (20-40); Mean Corpuscular HGB Conc 33.4 g/dl (31.0-36.0); Mean Corpuscular Hemoglobin 29.7 pg (27.0-33.0); Mean Corpuscular Volume 88.9 fL (80-98); Mean Platelet Volume 9.7 fL (9.4-12.4); Monocytes Absolute Auto 0.6 X10*3/uL (0.1-1.2); Monocytes Percent Auto 5.6 % (2-11); Neutrophils Absolute Auto 8.8 X10*3/uL (2.0-8.3); Neutrophils Percent Auto 79.6 % (45-73); Platelet Count 242 X10*3/uL (160-400); Red Cell Distribution Width 11.9 % (11.0-16.0)
[2020-09-15 07:19] LABS: MANUAL DIFF FLAG NO
[2020-09-15 07:43] LABS: Anion Gap 11 (12-20); Blood Urea Nitrogen 46 mg/dL (9-16); Calcium 8.2 mg/dL (8.4-10.2); Carbon Dioxide 30 mmol/L (22-29); Chloride 106 mmol/L (96-108); Creatinine Clr Calc Pharmacy 36.7; Estimated Glomerular Filt Rate 35; Glucose Fasting 148 mg/dL (60-99); Sodium 142 mmol/L (135-145)
[2020-09-15 07:54] VITALS: BP 182/84; PULSE 64; RESP 18; TEMP 36.4; O2SAT 98
[2020-09-15 08:03] LABS: Glucose, Whole Blood 141 mg/dL (60-115)
--- NOTE | 2020-09-15 09:24 | HO.PM.IMPN ---
Subjective Subjective Date of Service: 09/15/20 Interval History: had bm last night Cardiovascular Cardiovascular: Reports no additional cardiovascular complaints Gastrointestinal Gastrointestinal: Reports no additional gastrointestinal complaints Physical Exam Vital Signs: Vital Signs: Last Vital Signs Temp 97.5 F 09/15/20 07:54 Pulse 64 09/15/20 07:54 Resp 18 09/15/20 07:54 BP 182/84 H 09/15/20 07:54 Pulse Ox 98 09/15/20 07:54 Body Mass Index 25.5 General: Alert, disoriented, agitated at times but currently calm, no acute distress Resp: CTA bilateral CVS: S1,S2,RRR GI: soft, non tender, non distended Neuro: motor grossly intact Psych: impaired insight Objective Data Current Medications Generic Name Dose Route Start Last Admin Trade Name Freq PRN Reason Stop Dose Admin Acetaminophen 650 mg 09/13/20 14:43 Acetaminophen 325 Mg Tablet PO Q6H PRN Fever Or Pain Bisacodyl 10 mg 09/13/20 14:43 09/14/20 11:44 Bisacodyl 10 Mg Supp.Rect HI 10 mg DAILY PRN Administration Constipation Haloperidol 2 mg 09/13/20 14:46 09/13/20 20:16 Haloperidol 1 Mg Tablet PO 2 mg TID PRN Administration Agitation Insulin Glargine 6 unit 09/14/20 09:00 09/14/20 10:48 Insulin Glargine,Hum.Rec.Anlog 100 Unit/Ml 10 Ml Vial SUBCUT Not Given DAILY [facility] Insulin Human Lispro 0 unit 09/13/20 16:30 09/14/20 22:01 Insulin Lispro 100 Unit/Ml 3 Ml Vial SUBCUT Not Given QIDACHS [facility] Protocol Lorazepam 1 mg 09/13/20 14:43 Lorazepam 1 Mg Tablet PO BID PRN Agitation Lorazepam 1 mg 09/13/20 21:00 09/14/20 22:01 Lorazepam 1 Mg Tablet PO 1 mg BEDTIME RENATA Administration Magnesium Hydroxide 30 ml 09/13/20 14:43 Milk Of Magnesia 30 Ml Oral.Susp PO DAILY PRN Constipation Mirtazapine 7.5 mg 09/13/20 21:00 09/14/20 22:01 Mirtazapine 7.5 Mg Tablet PO 7.5 mg BEDTIME RENATA Administration Omeprazole 40 mg 09/16/20 06:30 Omeprazole 40 Mg Capsule. PO DAILY@0630 [facility] Sodium Chloride 3 ml 09/13/20 16:00 09/15/20 00:05 0.9 % Sodium Chloride Flush 3 Ml Syringe IVFLUSH Not Given QSHIFT [facility] Labs CBC & Chem 7: 09/15/20 07:07 09/15/20 07:07 Assessment and Plan (1) Orthostatic hypotension: Status: Acute (2) CKD (chronic kidney disease), stage IV: Problem details: baseline around 1.8-2 Status: Acute (3) Renal failure: Status: Deleted (4) Diabetes: Status: Acute (5) BRANDYN (acute kidney injury): Status: Acute (6) Hypotension: Status: Deleted (7) Dementia: Status: Acute Assessment and Plan: 80M presented with syncope, hypotension, brandyn/CKD IV Syncope Likely due to orthostatic hypotension complicated by acute on chronic kidney injury has supine hypertension will hold off on midodrine or Florinef off metoprolol, will need to tolerate some HTN creaitnine back to baseline ?coffee ground emesis hgb stable, so doubt actual bleeding, was likely vomiting due to constipation which has now resolved. changed ppi to po, dulcolax as needed Dementia with behavioral disturbances Currently stable Continue with Haldol, lorazepam, Remeron Brittle diabetes Glargine 6 units daily Insulin sliding scale No history of coronary disease or CVA, discontinued aspirin DNR DNI dispo: medically stable awaiting placement
--- NOTE | 2020-09-15 10:40 | MHC.CM.PN ---
PLAN IS FOR PATIENT TO RETURN TO [facility] ON Wednesday09/16/2020 BLS NEEDED DUE TO AGITATION AND DEMENTIA
[2020-09-15 11:38] LABS: Glucose, Whole Blood 155 mg/dL (60-115)
[2020-09-15 12:00] VITALS: BP 188/79; PULSE 61; RESP 18; TEMP 36.3; O2SAT 99
[2020-09-15] MEDS: Acetaminophen 325 MG TABLET 650 MG PO (14:19)
[2020-09-15] MEDS: LORazepam 1 MG TABLET PO ×2 (14:19→19:50)
[2020-09-15 16:00] VITALS: BP 149/78; PULSE 65; RESP 20; TEMP 36.3; O2SAT 100
[2020-09-15] MEDS: 0.9 % Sodium Chloride Flush 3 ML SYRINGE IVFLUSH (16:48)
[2020-09-15] MEDS: HaloperidoL 1 MG TABLET 2 MG PO (17:26)
[2020-09-15 19:22] VITALS: BP 165/91; PULSE 89; RESP 20; TEMP 36.3; O2SAT 100
[2020-09-15] MEDS: Mirtazapine 7.5 MG TABLET PO (19:50)
[2020-09-16] VITALS (10 sets, daily range): BP systolic 136–198; BP diastolic 51–95; PULSE 63–78; RESP 17–20; TEMP 35.5–36.7; O2SAT 96–100
[2020-09-16] MEDS: 0.9 % Sodium Chloride Flush 3 ML SYRINGE IVFLUSH ×4 (00:16→21:11)
[2020-09-16] MEDS: LORazepam 1 MG TABLET PO ×2 (00:55→21:11)
[2020-09-16] MEDS: diphenhydrAMINE HCL 50 MG/ML VIAL 25 MG IVPUSH (01:40)
[2020-09-16 02:35] LABS: Glucose Urine UA 250 MG/DL (NEG); Leukocyte Esterase Urine NEG (NEG); Nitrite Urine NEG (NEG); PH 7.5 (5.0-8.0); Specific Gravity - Urine 1.025 (1.005-1.025); Urine Blood 3+ (NEG); Urine Ketones 5 MG/DL (NEG); Urine Protein 3+ MG/DL (NEG-TRACE)
[2020-09-16 02:50] LABS: Appearance Urine TURBID
[2020-09-16 02:51] LABS: Color Urine RED; UACC CULT YES
[2020-09-16 02:52] LABS: Bacteria Urine 1+ /LPF; RBC Urine TNTC /HPF (0); Squamous Epithelial Cell Urine 1+ /LPF
[2020-09-16] MEDS: HaloperidoL 1 MG TABLET 2 MG PO ×2 (05:03→21:55)
[2020-09-16] MEDS: Omeprazole 40 MG CAPSULE.DR PO (06:01)
[2020-09-16 08:20] LABS: Glucose, Whole Blood 178 mg/dL (60-115)
[2020-09-16] MEDS: Insulin Lispro 100 UNIT/ML 3 ML VIAL SUBCUT ×2 (08:31→17:08)
[2020-09-16] MEDS: Acetaminophen 325 MG TABLET 650 MG PO ×2 (08:32→21:13)
[2020-09-16] MEDS: Insulin Glargine,Hum.rec.anlog 100 UNIT/ML 10 ML VIAL 6 UNIT SUBCUT (08:32)
--- NOTE | 2020-09-16 11:14 | MHC.CM.PN ---
Addendum entered by Yokasta Bradford RN 09/16/20 15:34: CM RECEIVED CALL FROM /HCP ALMA DELIA AND REVIEWED IMM, SPOUSE DID VOICE CONCERNS REGARDING INABILITY TO CARE FOR PATIENT AT HOME DUE TO ADVANCING DEMENTIA AND AGGRESSIVE OUTBURSTS, SPOUSE REPORTS SHE HAS AN APPLICATION FOR THE [facility] [facility] AND HER CONTACT THEIR HAD TOLD HER TO WAIT TO FILL OUT APPLICATION UNTIL SHE THOUGHT PATIENT NEEDED MORE CARE, [employer] WILL BE FILLING IT OUT PROMPTLY, SPOUSE ENCOURAGED TO UTILIZE [facility] THROUGH HER TOWN, SPOUSE ALSO ENCOURAGED TO CONTACT/UTILIZE CASE MANAGEMENT AT [facility] WHEN PATIENT RETURNS (ANTICIPATED DISCHARGE 09/17/20). Addendum entered by Yokasta Bradford RN 09/16/20 13:29: MESSAGE LEFT WITH PT'S /HCP ALMA DELIA TO REVIEW IMM. Original Note: PT'S CASE DISCUSSED IN MULTIDISCIPLINARY ROUNDS, PT WILL NEED URINARY WORK-UP BEFORE DISCHARGING BACK TO [facility] DUE TO BLOOD IN URINE, PTS /HCP NOTIFIED, PER SHE DOES NOT WANT PATIENT POKED AND PRODDED TOO MUCH SINCE HE HAS GONE THROUGH A LOT RECENTLY. CM WILL NOTIFY HOSPITALIST. DISCHARGE PLAN TO RETURN TO [facility] VIA BLS TRANSPORT.
[2020-09-16 11:53] LABS: Glucose, Whole Blood 148 mg/dL (60-115)
[2020-09-16 14:44] LABS: Glucose Urine UA 100 MG/DL (NEG); Leukocyte Esterase Urine NEG (NEG); Nitrite Urine NEG (NEG); Specific Gravity - Urine 1.025 (1.005-1.025); Urine Blood 3+ (NEG); Urine Ketones 5 MG/DL (NEG); Urine Protein 2+ MG/DL (NEG-TRACE)
[2020-09-16 14:47] LABS: Appearance Urine HAZY; Color Urine YELLOW
[2020-09-16 15:07] LABS: Bacteria Urine 1+ /LPF; Mucus Urine TRACE /LPF; RBC Urine TNTC /HPF (0); Squamous Epithelial Cell Urine 1+ /LPF
--- NOTE | 2020-09-16 16:47 | P.PNIM_ITS ---
Subjective Subjective Date of Service: 09/16/20 Interval History: Patient being followed for a orthostatic hypotension, patient resting in bed comfortably offers no acute complaints, has baseline dementia does not communicate well. Review of Systems Unable to obtain detailed review of system due to underlying dementia Physical Exam Vital Signs: Vital Signs: Last Vital Signs Temp 96 F L 09/16/20 15:48 Pulse 63 09/16/20 15:48 Resp 18 09/16/20 15:48 BP 140/60 H 09/16/20 15:57 Pulse Ox 100 09/16/20 15:48 Body Mass Index 25.5 General patient resting comfortably in no acute distress. Neck is supple no JVD. CVS regular rate rhythm, Respiratory lungs clear to auscultation, no respiratory distress. Gastrointestinal abdomen soft, nontender, bowel sounds audible. Extremities no clubbing ,no cyanosis or edema. Neuro nonfocal speech clear. Psych poor insight Skin no rash Objective Data Current Medications Generic Name Dose Route Start Last Admin Trade Name Freq PRN Reason Stop Dose Admin Acetaminophen 650 mg 09/13/20 14:43 09/16/20 08:32 Acetaminophen 325 Mg Tablet PO 650 mg Q6H PRN Administration Fever Or Pain Bisacodyl 10 mg 09/13/20 14:43 09/14/20 11:44 Bisacodyl 10 Mg Supp.Rect AK 10 mg DAILY PRN Administration Constipation Haloperidol 2 mg 09/13/20 14:46 09/16/20 05:03 Haloperidol 1 Mg Tablet PO 2 mg TID PRN Administration Agitation Insulin Glargine 6 unit 09/14/20 09:00 09/16/20 08:32 Insulin Glargine,Hum.Rec.Anlog 100 Unit/Ml 10 Ml Vial SUBCUT 6 unit DAILY RENATA Administration Insulin Human Lispro 0 unit 09/13/20 16:30 09/16/20 11:54 Insulin Lispro 100 Unit/Ml 3 Ml Vial SUBCUT Not Given QIDACHS [facility] Protocol Lorazepam 1 mg 09/13/20 14:43 09/16/20 00:55 Lorazepam 1 Mg Tablet PO 1 mg BID PRN Administration Agitation Lorazepam 1 mg 09/13/20 21:00 09/15/20 19:50 Lorazepam 1 Mg Tablet PO 1 mg BEDTIME RENATA Administration Magnesium Hydroxide 30 ml 09/13/20 14:43 Milk Of Magnesia 30 Ml Oral.Susp PO DAILY PRN Constipation Mirtazapine 7.5 mg 09/13/20 21:00 09/15/20 19:50 Mirtazapine 7.5 Mg Tablet PO 7.5 mg BEDTIME RENATA Administration Omeprazole 40 mg 09/16/20 06:30 09/16/20 06:01 Omeprazole 40 Mg Capsule.Dr PO 40 mg DAILY@0630 RENATA Administration Sodium Chloride 3 ml 09/13/20 16:00 09/16/20 08:32 0.9 % Sodium Chloride Flush 3 Ml Syringe IVFLUSH 3 ml QSHIFT RENATA Administration Labs CBC & Chem 7: 09/15/20 07:07 09/15/20 07:07 Assessment and Plan (1) Orthostatic hypotension: Status: Acute (2) Hematemesis: Status: Acute (3) CKD (chronic kidney disease), stage IV: Problem details: baseline around 1.8-2 Status: Acute (4) Diabetes: Status: Acute (5) BRANDYN (acute kidney injury): Status: Acute (6) Dementia: Status: Acute Assessment and Plan: 80M presented with syncope, hypotension, brandyn/CKD IV Syncope Likely due to orthostatic hypotension complicated by acute on chronic kidney injury. has supine hypertension will hold off on midodrine or Florinef, off metoprolol, noted to have elevated blood pressure recommend to sit patient up with elevated blood pressure. urinary retention/hematuria/urinary incontinence Patient noted to have some blood on his bed pad therefore straight cath was done last night and patient noted to have hematuria, UA showed TNTC rbc ,1+ bacteria Will start patient on empiric antibiotic, follow urine culture and bladder scan, otherwise patient has been incontinent of small amount of urine question has chronic urinary retention will avoid further straight cath unless patient symptomatic with lower abdominal pain or noted to have worsening renal function. Question UTI follow urine cultures continue IV ceftriaxone day 1 ? coffee ground emesis hgb stable, so doubt actual bleeding, was likely vomiting due to constipation which has now resolved. Continue ppi will add daily stool softener Dementia with behavioral disturbances Currently stable Continue with Haldol, lorazepam, Remeron Brittle diabetes Blood sugars stable, continue Glargine 6 units daily Insulin sliding scale No history of coronary disease or CVA, discontinued aspirin DNR DNI dispo: medically stable awaiting placement
[2020-09-16 16:58] LABS: Glucose, Whole Blood 156 mg/dL (60-115)
[2020-09-16] MEDS: cefTRIAXone sodium 1 GM in 0.9 % Sodium Chloride 50 ML IV (17:46)
--- NOTE | 2020-09-16 17:48 | PC.NURSE ---
External catheter placed to collect UA due to pt being incontinent. PT did not void, MD made aware. Bladder scanned for 646ml. Order placed to straight cath. Straight cathed for 700ml dark yellow urine with slight pink tinge. MD made aware. ABX order placed. Order to bladder scan qshift to be placed. Will continue to monitor urine output and hematuria.
[2020-09-16] MEDS: Mirtazapine 7.5 MG TABLET PO (21:11)
[2020-09-16 21:30] LABS: Glucose, Whole Blood 124 mg/dL (60-115)
[2020-09-17] MEDS: Omeprazole 40 MG CAPSULE.DR PO (05:46)
[2020-09-17 06:00] VITALS: BP 142/58; PULSE 76; RESP 18; TEMP 36.6; O2SAT 98
[2020-09-17 07:39] VITALS: BP 156/62; PULSE 79
[2020-09-17 08:07] LABS: Glucose, Whole Blood 111 mg/dL (60-115)
[2020-09-17 08:28] LABS: Hemoglobin 10.7 g/dl (14.0-18.0); Mean Corpuscular HGB Conc 32.4 g/dl (31.0-36.0); Mean Corpuscular Hemoglobin 29.1 pg (27.0-33.0); Mean Corpuscular Volume 89.7 fL (80-98); Mean Platelet Volume 9.7 fL (9.4-12.4); Platelet Count 235 X10*3/uL (160-400); Red Blood Count 3.68 X10*6/uL (4.60-5.80); Red Cell Distribution Width 11.9 % (11.0-16.0); White Blood Count 13.4 X10*3/uL (4.8-10.8)
[2020-09-17 08:51] LABS: Anion Gap 11 (12-20); Blood Urea Nitrogen 35 mg/dL (9-16); Calcium 8.1 mg/dL (8.4-10.2); Carbon Dioxide 29 mmol/L (22-29); Chloride 105 mmol/L (96-108); Creatinine Clr Calc Pharmacy 39.3; Estimated Glomerular Filt Rate 38; Glucose Random 119 mg/dL (60-115); Potassium 4.4 mmol/l (3.3-5.1); Sodium 141 mmol/L (135-145)
[2020-09-17] MEDS: Insulin Glargine,Hum.rec.anlog 100 UNIT/ML 10 ML VIAL 6 UNIT SUBCUT (09:21)
[2020-09-17] MEDS: 0.9 % Sodium Chloride Flush 3 ML SYRINGE IVFLUSH ×3 (09:21→19:57)
--- NOTE | 2020-09-17 12:59 | MHC.CM.PN ---
CM UPDATED [facility] ON PLAN NOT TO DISCHARGE TODAY, PER MULTIDISCIPLINARY ROUNDS PT WAS AGGRESSIVE LAST NIGHT AND IS NOT VOIDING SUFFICIENTLY OF MULTIDISCIPLINARY ROUNDS.
[2020-09-17 14:00] VITALS: BP 152/79; PULSE 72; RESP 19; TEMP 36.2; O2SAT 97
[2020-09-17] MEDS: HaloperidoL 1 MG TABLET 2 MG PO (14:54)
[2020-09-17 15:29] VITALS: BP 163/78; PULSE 74
[2020-09-17 15:30] VITALS: BP 158/74; PULSE 75
--- NOTE | 2020-09-17 18:28 | P.PNIM_ITS ---
Subjective Subjective Date of Service: 09/18/20 Interval History: Patient being followed for syncope, orthostatic hypotension,and an episode of hematuria and urinary retention patient noted to be somnolent this morning since received Ativan and haldol last night due to behavioral issues, patient is moving al his extremities and open eyes. Unable to obtain review of system due to somnolence Physical Exam Vital Signs: Vital Signs: Last Vital Signs Temp 97.1 F 09/17/20 14:00 Pulse 75 09/17/20 15:30 Resp 19 09/17/20 14:00 BP 158/74 H 09/17/20 15:30 Pulse Ox 97 09/17/20 14:00 Body Mass Index 25.5 General somnolent but arousable. Neck is supple no JVD. CVS regular rate rhythm, Respiratory lungs clear to auscultation, no respiratory distress, no wheeze, no rhonchi. Gastrointestinal abdomen soft, bowel sounds audible Extremities no edema. Neuro nonfocal patient moving all 4 extremity . Skin no rash Objective Data Current Medications Generic Name Dose Route Start Last Admin Trade Name Freq PRN Reason Stop Dose Admin Acetaminophen 650 mg 09/13/20 14:43 09/16/20 21:13 Acetaminophen 325 Mg Tablet PO 650 mg Q6H PRN Administration Fever Or Pain Bisacodyl 10 mg 09/13/20 14:43 09/14/20 11:44 Bisacodyl 10 Mg Supp.Rect LA 10 mg DAILY PRN Administration Constipation Haloperidol 2 mg 09/13/20 14:46 09/17/20 14:54 Haloperidol 1 Mg Tablet PO 2 mg TID PRN Administration Agitation Ceftriaxone Sodium 1 gm/ 50 mls @ 100 mls/hr 09/16/20 18:00 09/16/20 18:27 Sodium Chloride IV Infused Q24H RENATA Infusion Insulin Glargine 6 unit 09/14/20 09:00 09/17/20 09:21 Insulin Glargine,Hum.Rec.Anlog 100 Unit/Ml 10 Ml Vial SUBCUT 6 unit DAILY RENATA Administration Insulin Human Lispro 0 unit 09/13/20 16:30 09/17/20 12:02 Insulin Lispro 100 Unit/Ml 3 Ml Vial SUBCUT Not Given QIDACHS [facility] Protocol Lorazepam 1 mg 09/13/20 14:43 09/16/20 00:55 Lorazepam 1 Mg Tablet PO 1 mg BID PRN Administration Agitation Lorazepam 1 mg 09/13/20 21:00 09/16/20 21:11 Lorazepam 1 Mg Tablet PO 1 mg BEDTIME RENATA Administration Magnesium Hydroxide 30 ml 09/13/20 14:43 Milk Of Magnesia 30 Ml Oral.Susp PO DAILY PRN Constipation Mirtazapine 7.5 mg 09/13/20 21:00 09/16/20 21:11 Mirtazapine 7.5 Mg Tablet PO 7.5 mg BEDTIME RENATA Administration Omeprazole 40 mg 09/16/20 06:30 09/17/20 05:46 Omeprazole 40 Mg Capsule.Dr PO 40 mg DAILY@0630 RENATA Administration Psyllium Hydrophilic Mucilloid 3.4 gm 09/17/20 09:00 09/17/20 09:21 Psyllium Seed 3.4 Gm Powd.Pack PO 3.4 gm DAILY RENATA Administration Sodium Chloride 3 ml 09/13/20 16:00 09/17/20 14:55 0.9 % Sodium Chloride Flush 3 Ml Syringe IVFLUSH 3 ml QSHIFT RENATA Administration Labs CBC & Chem 7: 09/17/20 08:16 09/17/20 08:16 Microbiology Microbiology Results: Microbiology 09/16/20 01:40 Urine Catheterized - Straight Catheter Urine Culture - Final Assessment and Plan (1) Hematemesis: Status: Acute (2) Orthostatic hypotension: Status: Acute (3) CKD (chronic kidney disease), stage IV: Problem details: baseline around 1.8-2 Status: Acute (4) Diabetes: Status: Acute (5) BRANDYN (acute kidney injury): Status: Acute (6) Dementia: Status: Acute (7) Hematuria: Status: Acute Assessment and Plan: 80M presented with syncope, hypotension, brandyn/CKD IV Syncope Likely due to orthostatic hypotension complicated by acute on chronic kidney injury.midodrine or Florinef not started due to supine hypertension, off metoprolol due to low blood pressures, noted to have elevated blood pressure recommend to sit patient up with elevated blood pressure. urinary retention/hematuria/urinary incontinence Patient noted to have some blood on his bed pad therefore straight cath was done 09/16 and patient noted to have hematuria, UA showed TNTC rbc ,1+ bacteria Patient placed on empiric antibiotic but urine culture this morning showed no growth, therefore will discontinue antibiotic, patient noted to have elevated bladder scans this a.m. but during the day patient started to void small amount hematocrit remains stable , kidney function is stable continue to follow patient for another 24 hours ? coffee ground emesis hgb stable, so doubt actual bleeding, was likely vomiting due to constipation which has now resolved. Continue ppi , and daily stool softener Dementia with behavioral disturbances Patient last night noted to have behavioral issues therefore received as needed medication Haldol, lorazepam, and Remeron follow clinical course today and adjust medication If patient continued to have behavioral issues will add scheduled antipsychotic medications at bedtime. Brittle diabetes Blood sugars stable, continue Glargine 6 units daily Insulin sliding scale No history of coronary disease or CVA, discontinued aspirin with hematuria and concern for coffee-ground emesis DNR DNI
[2020-09-17] MEDS: cefTRIAXone sodium 1 GM in 0.9 % Sodium Chloride 50 ML IV (19:29)
[2020-09-17] MEDS: Mirtazapine 7.5 MG TABLET PO (19:57)
[2020-09-17] MEDS: diphenhydrAMINE HCL 25 MG TABLET PO (19:57)
[2020-09-17] MEDS: LORazepam 1 MG TABLET PO (19:57)
[2020-09-17 21:46] LABS: Glucose, Whole Blood 153 mg/dL (60-115)
[2020-09-17] MEDS: Insulin Lispro 100 UNIT/ML 3 ML VIAL SUBCUT (21:55)
[2020-09-17 22:50] LABS: Glucose, Whole Blood 133 mg/dL (60-115)
[2020-09-17 22:50] LABS: Glucose, Whole Blood 112 mg/dL (60-115)
[2020-09-18] VITALS (7 sets, daily range): BP systolic 122–190; BP diastolic 69–97; PULSE 60–113; RESP 18–20; TEMP 36.2–36.8; O2SAT 96–99
[2020-09-18] MEDS: HaloperidoL 1 MG TABLET 2 MG PO (03:07)
[2020-09-18] MEDS: Omeprazole 40 MG CAPSULE.DR PO (04:54)
[2020-09-18] MEDS: LORazepam 1 MG TABLET PO ×2 (04:54→20:53)
[2020-09-18] MEDS: 0.9 % Sodium Chloride Flush 3 ML SYRINGE IVFLUSH ×3 (07:20→20:53)
[2020-09-18 08:04] LABS: Glucose, Whole Blood 102 mg/dL (60-115)
[2020-09-18] MEDS: Insulin Glargine,Hum.rec.anlog 100 UNIT/ML 10 ML VIAL 6 UNIT SUBCUT (08:43)
[2020-09-18 11:41] LABS: Glucose, Whole Blood 112 mg/dL (60-115)
--- NOTE | 2020-09-18 12:54 | MHC.CM.PN ---
Addendum entered by Yokasta Bradford RN 09/18/20 13:24: CM UPDATED [facility] ON PTS STATUS, REFERRAL FOR TRANSPORT TO [facility] COMPLETED. Original Note: PER MULTIDISCIPLINARY ROUNDS ATTENDING WILL SCHEDULE MEDICATION AT BEDTIME TO HELP WITH DEMENTIA RELATED AGGRESSION AND PLAN TO DISCHARGE BACK TO [facility] ON 09/19 VIA S TRANSPORTATION. /HCP ALMA DELIA UPDATED ON PTS STATUS.
[2020-09-18 16:37] LABS: Glucose, Whole Blood 124 mg/dL (60-115)
--- NOTE | 2020-09-18 16:56 | HO.PM.IMPN ---
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 Unable to obtain review of system due to dementia Physical Exam Vital Signs: Vital Signs: Last Vital Signs Temp 97.5 F 09/18/20 14:31 Pulse 96 09/18/20 16:00 Resp 18 09/18/20 14:31 BP 122/74 09/18/20 16:00 Pulse Ox 97 09/18/20 14:31 Body Mass Index 25.5 General patient lying naked in bed, incontinent of urine no hematuria noted. Neck no JVD. CVS regular rate rhythm, Respiratory lungs clear to auscultation, no respiratory distress Gastrointestinal abdomen soft, bowel sounds audible,no guarding , no rigidity. Extremities no clubbing cyanosis or edema. Neuro moving all 4 extremity speech clear. Skin few dry scabs lower extremity Objective Data Current Medications Generic Name Dose Route Start Last Admin Trade Name Freq PRN Reason Stop Dose Admin Acetaminophen 650 mg 09/13/20 14:43 09/16/20 21:13 Acetaminophen 325 Mg Tablet PO 650 mg Q6H PRN Administration Fever Or Pain Bisacodyl 10 mg 09/13/20 14:43 09/14/20 11:44 Bisacodyl 10 Mg Supp.Rect [place] 10 mg DAILY PRN Administration Constipation Haloperidol 2 mg 09/13/20 14:46 09/18/20 03:07 Haloperidol 1 Mg Tablet PO 2 mg TID PRN Administration Agitation Ceftriaxone Sodium 1 gm/ 50 mls @ 100 mls/hr 09/16/20 18:00 09/17/20 20:01 Sodium Chloride IV Infused Q24H [facility] Infusion Insulin Glargine 6 unit 09/14/20 09:00 09/18/20 08:43 Insulin Glargine,Hum.Rec.Anlog 100 Unit/Ml 10 Ml Vial SUBCUT 6 unit DAILY RENATA Administration Insulin Human Lispro 0 unit 09/13/20 16:30 09/18/20 16:39 Insulin Lispro 100 Unit/Ml 3 Ml Vial SUBCUT Not Given QIDACHS [facility] Protocol Lorazepam 1 mg 09/13/20 21:00 09/17/20 19:57 Lorazepam 1 Mg Tablet PO 1 mg BEDTIME RENATA Administration Lorazepam 1 mg 09/18/20 15:08 Lorazepam 1 Mg Tablet PO BID PRN Agitation Magnesium Hydroxide 30 ml 09/13/20 14:43 Milk Of Magnesia 30 Ml Oral.Susp PO DAILY PRN Constipation Mirtazapine 7.5 mg 09/13/20 21:00 09/17/20 19:57 Mirtazapine 7.5 Mg Tablet PO 7.5 mg BEDTIME RENATA Administration Omeprazole 40 mg 09/16/20 06:30 09/18/20 04:54 Omeprazole 40 Mg Capsule.Dr PO 40 mg DAILY@0630 RENATA Administration Psyllium Hydrophilic Mucilloid 3.4 gm 09/17/20 09:00 09/18/20 08:43 Psyllium Seed 3.4 Gm Powd.Pack PO 3.4 gm DAILY RENATA Administration Sodium Chloride 3 ml 09/13/20 16:00 09/18/20 16:39 0.9 % Sodium Chloride Flush 3 Ml Syringe IVFLUSH 3 ml QSHIFT RENATA Administration Labs CBC & Chem 7: 09/17/20 08:16 09/17/20 08:16 Microbiology Microbiology Results: Microbiology 09/16/20 01:40 Urine Catheterized - Straight Catheter Urine Culture - Final Assessment and Plan (1) Hematuria: Status: Acute (2) Hematemesis: Status: Acute (3) Orthostatic hypotension: Status: Acute (4) CKD (chronic kidney disease), stage IV: Problem details: baseline around 1.8-2 Status: Acute (5) Diabetes: Status: Acute (6) BRANDYN (acute kidney injury): Status: Acute (7) Dementia: Status: Acute Assessment and Plan: 80M presented with syncope, hypotension, brandyn/CKD IV Syncope Likely due to orthostatic hypotension complicated by acute on chronic kidney injury, off metoprolol due to low blood pressures, noted to have elevated blood pressure recommend to sit patient up with elevated blood pressure. Acute on chronic kidney disease stage Creatinine back to baseline (1.8-2) urinary retention/hematuria/urinary incontinence Patient noted to have some blood on his bed pad therefore straight cath was done 09/16 and patient noted to have hematuria, UA showed TNTC rbc ,1+ bacteria Patient placed on empiric antibiotic but urine culture showed no growth, therefore antibiotic, discontinued, patient noted to have urinary incontinence, no further hematuria noted , hematocrit stable ? coffee ground emesis hgb stable, so doubt actual bleeding, was likely vomiting due to constipation which has now resolved. Continue ppi , and daily stool softener Dementia with behavioral disturbances Patient continue to have behavioral issues at night requiring Haldol and Ativan, therefore will increase dose of Remeron to 15 mg at bedtime, continue Ativan 1 mg bedtime and will reduce dose of Haldol to 1 mg t.i.d. as needed to avoid excessive somnolence and DC as needed Ativan, will encourage out of bed to chair as tolerated. Brittle diabetes Blood sugars stable, continue Glargine 6 units daily Insulin sliding scale No history of coronary disease or CVA, discontinued aspirin with hematuria and concern for coffee-ground emesis DNR DNI
[2020-09-18] MEDS: Mirtazapine 7.5 MG TABLET 15 MG PO (20:53)
[2020-09-19] MEDS: Omeprazole 40 MG CAPSULE.DR PO (05:47)
[2020-09-19 07:00] VITALS: BP 136/82; PULSE 74; RESP 16; TEMP 36.1; O2SAT 96
[2020-09-19 07:23] LABS: Glucose, Whole Blood 92 mg/dL (60-115)
[2020-09-19] MEDS: 0.9 % Sodium Chloride Flush 3 ML SYRINGE IVFLUSH (07:27)
[2020-09-19 08:04] LABS: Glucose, Whole Blood 62 mg/dL (60-115)
[2020-09-19 08:58] LABS: Glucose, Whole Blood 118 mg/dL (60-115)
--- NOTE | 2020-09-19 11:19 | PM.DS ---
DS: Providers Provider Date of admission: 09/13/20 14:06 Primary care physician: Unknown Physician Consults: 09/14/20 06:20 Consult to Gastroenterology Routine Consulting Provider: Christopher Glasgow Reason for consultation: Coffee-ground emesis Has provider been notified: No DS: Diagnosis Discharge Diagnosis (1) Hematuria: Status: Acute (2) Hematemesis: Status: Acute (3) Orthostatic hypotension: Status: Acute (4) CKD (chronic kidney disease), stage IV: Status: Acute Problem details: baseline around 1.8-2 (5) Diabetes: Status: Acute (6) BRANDYN (acute kidney injury): Status: Acute (7) Dementia: Status: Acute DS: Medications Discharge Medications Home Medications: Home Medications Medication Instructions Recorded Confirmed Humalog U-100 Insulin 4 units SUBCUT TIDWMEAL 09/13/20 09/13/20 Lantus Solostar U-100 Insulin 6 unit SUBCUT DAILY 09/13/20 09/13/20 acetaminophen 650 mg PO Q6H PRN MDD 3 gm 09/13/20 09/13/20 aspirin 325 mg PO DAILY 09/13/20 09/13/20 bisacodyl 10 mg NV DAILY PRN 09/13/20 09/13/20 lorazepam 1 mg PO BEDTIME 09/13/20 09/13/20 lorazepam 1 mg PO BID PRN 09/13/20 09/13/20 magnesium hydroxide [Milk of 30 ml PO DAILY PRN 09/13/20 09/13/20 Magnesia] nystatin 100,000 unit TOPICAL BID 09/13/20 09/13/20 Previous Rx's Medication Instructions Recorded haloperidol 1 mg PO TID PRN #15 tab 09/19/20 mirtazapine 15 mg PO BEDTIME #30 tab 09/19/20 omeprazole 40 mg PO DAILY@0630 #30 cap 09/19/20 psyllium husk (aspartame) 3.4 g PO DAILY #30 ea 09/19/20 [Metamucil Fiber Singles] DS: Summary Hospital Course Hospital Course: History of presenting illness Chief Complaint: unresponsive 80M sent in from a rehab for unresponsiveness and hypotension. Patient has advanced dementia. He had been living at home with his and daughter until August 27 2020. At that time patient started having aggressive behavior and was admitted to [facility]. He had been recently discharged [facility], at [facility] patient was agitated, had 2 falls, then had a period of unresponsiveness where his systolic blood pressure was in the 70s. Patient's notes that patient has issues with labile blood pressures, and has been taken off all blood pressure medications. It is unclear whether he is receiving metoprolol and [facility]. In ED patient's blood pressure is back to normal and he is alert and disoriented as his baseline. He was noted to have some acute kidney injury, with creatinine of 3.1, which is slightly above baseline of 1.8 to 2. [facility] Medical History Anaplasmosis CKD (chronic kidney disease), stage IV Dementia Diabetes Orthostatic hypotension Hospital course 80M presented with syncope, hypotension, brandyn/CKD IV Syncope Likely due to orthostatic hypotension complicated by acute on chronic kidney injury, off metoprolol due to low blood pressures, noted to have elevated blood pressure recommend to sit patient up with elevated blood pressure. Acute on chronic kidney disease stage Creatinine back to baseline (1.8-2) urinary retention/hematuria/urinary incontinence Patient noted to have some blood on his bed pad therefore straight cath was done 09/16 and patient noted to have hematuria, UA showed TNTC rbc ,1+ bacteria Patient placed on empiric antibiotic but urine culture showed no growth, therefore antibiotic, discontinued, patient noted to have urinary incontinence, no further hematuria noted , hematocrit stable ? coffee ground emesis hgb stable, so doubt actual bleeding, was likely vomiting due to constipation which has now resolved. Continue ppi , and daily stool softeners. Dementia with behavioral disturbances Patient noted to have behavioral issues at night requiring Haldol and Ativan, therefore dose of Remeron increased from 7.5 mg to 15 mg at bedtime, continue Ativan 1 mg bedtime and dose of Haldol reduced to 1 mg t.i.d. as needed for agitation, to avoid excessive somnolence, encourage out of bed to chair as tolerated. Patient need help with feedings. Brittle diabetes Blood sugars stable, continue Glargine 6 units daily and pre meal insulin, follow blood sugar t.i.d. before meals and at bedtime No history of coronary disease or CVA, discontinued aspirin with hematuria and concern for coffee-ground emesis Time Spent with Patient Time attestation: Total time spent providing and/or coordinating discharge services: Physical Exam Vital Signs: Vital Signs: Last Vital Signs Temp 97.0 F 09/19/20 07:00 Pulse 74 09/19/20 07:00 Resp 16 09/19/20 07:00 BP 136/82 09/19/20 07:00 Pulse Ox 96 09/19/20 07:00 Body Mass Index 25.5 General patient lying naked in bed, incontinent of urine, no hematuria noted. Neck no JVD. CVS regular rate rhythm, Respiratory lungs clear to auscultation, no respiratory distress Gastrointestinal abdomen soft, bowel sounds audible,no guarding , no rigidity. Extremities no clubbing cyanosis or edema. Neuro moving all 4 extremity, speech clear. Skin few dry scabs lower extremity DS: Data Data Completed and Pending Labs on day of discharge: 09/13/20 08:39 ECG [address] cervical spine wo con Stat CT head/brain wo con Stat 09/13/20 08:42 EKG Documentation DIRECTED 09/13/20 09:03 Basic Metabolic Panel Stat Complete Blood Count Auto Diff Stat Liver Panel Stat Troponin-I High Sensitivity Stat 09/13/20 09:04 Prothrombin Time INR Stat 09/13/20 10:35 Consult Rx Perform Med Rec 1 each MISCELLANE ONCE PRN 09/13/20 10:45 0.9 % Sodium Chloride [Ns] 1,000 ml IVCONT 999 mls/hr 09/13/20 10:54 XR chest 1V Stat COVID-19 ID NOW ([facility]) Stat 09/13/20 11:04 Add Laboratory Test Stat 09/13/20 12:02 HaloperidoL [Haldol] 2 mg PO ONCE ONE LORazepam [Ativan] 0.5 mg PO Q6H ONE 09/13/20 12:44 Transfer Order Routine 09/13/20 14:43 Enoxaparin Sodium [Lovenox] 30 mg SUBCUT Q24H LORazepam [Ativan] 1 mg PO BID PRN Lactated Ringers [Lr] 1,000 ml IVCONT 80 mls/hr 09/13/20 14:46 HaloperidoL [Haldol] 2 mg PO TID PRN 09/13/20 Lunch Diabetic Diet 09/13/20 17:09 Glucose, Whole Blood Routine 09/13/20 20:35 Glucose, Whole Blood Routine 09/13/20 20:38 Glucose, Whole Blood Routine 09/13/20 21:00 Mirtazapine [Remeron] 7.5 mg PO BEDTIME 09/14/20 CT abdomen pelvis wo con Stat 09/14/20 06:20 LORazepam [Ativan] 0.5 mg IVPUSH ONCE ONE 09/14/20 06:30 Pantoprazole Sodium [Protonix] 40 mg IVPUSH BID@0630,1630 09/14/20 07:02 Basic Metabolic Panel DAILY@0600 Complete Blood Count Auto Diff DAILY@0600 Cortisol Routine TSH reflex Free T4 Routine 09/14/20 07:43 Glucose, Whole Blood Routine 09/14/20 Breakfast NPO Diet 09/14/20 11:34 Glucose, Whole Blood Routine 09/14/20 16:19 Glucose, Whole Blood Routine 09/14/20 21:01 Glucose, Whole Blood Routine 09/15/20 07:07 BMP [Basic Metabolic Panel Fasting] Routine Complete Blood Count Auto Diff Routine 09/15/20 07:54 Glucose, Whole Blood Routine 09/15/20 11:29 Glucose, Whole Blood Routine 09/16/20 01:14 diphenhydrAMINE HCL [Benadryl] 25 mg IVPUSH ONCE ONE 09/16/20 01:40 Urine Culture Routine 09/16/20 08:04 Glucose, Whole Blood Routine 09/16/20 11:20 Glucose, Whole Blood Routine 09/16/20 16:54 Glucose, Whole Blood Routine 09/16/20 17:32 cefTRIAXone sodium [Rocephin] 1 gm .ROUTE .STK-MED ONE 09/16/20 18:00 cefTRIAXone sodium [Rocephin] 1 gm 0.9 % Sodium Chloride [Ns] 50 ml IV Q24H 09/16/20 21:10 Glucose, Whole Blood Routine 09/17/20 00:00 diphenhydrAMINE HCL [Benadryl] 25 mg PO ONCE ONE 09/17/20 07:14 Glucose, Whole Blood Routine 09/17/20 08:16 Basic Metabolic Panel Routine Complete Blood Count no Diff Routine 09/17/20 11:36 Glucose, Whole Blood Routine 09/17/20 16:08 Glucose, Whole Blood Routine 09/17/20 19:05 cefTRIAXone sodium [Rocephin] 1 gm .ROUTE .STK-MED ONE 09/17/20 19:43 diphenhydrAMINE HCL [Benadryl] 25 mg PO ONCE ONE 09/17/20 21:42 Glucose, Whole Blood Routine 09/18/20 07:58 Glucose, Whole Blood Routine 09/18/20 11:32 Glucose, Whole Blood Routine 09/18/20 15:08 LORazepam [Ativan] 1 mg PO BID PRN 09/18/20 16:29 Glucose, Whole Blood Routine 09/18/20 20:45 Glucose, Whole Blood Routine 09/19/20 07:53 Glucose, Whole Blood Routine 09/19/20 08:54 Glucose, Whole Blood Routine Laboratory Last Values WBC 13.4 X10*3/uL (4.8-10.8) H 09/17/20 08:16 RBC 3.68 X10*6/uL (4.60-5.80) L 09/17/20 08:16 Hgb 10.7 g/dl (14.0-18.0) L 09/17/20 08:16 Hct 33.0 % (42-52) L 09/17/20 08:16 MCV 89.7 fL (80-98) 09/17/20 08:16 MCH 29.1 pg (27.0-33.0) 09/17/20 08:16 MCHC 32.4 g/dl (31.0-36.0) 09/17/20 08:16 RDW 11.9 % (11.0-16.0) 09/17/20 08:16 Plt Count 235 X10*3/uL (160-400) 09/17/20 08:16 MPV 9.7 fL (9.4-12.4) 09/17/20 08:16 Immature Gran % (Auto) 0.4 % (0.0-0.4) 09/15/20 07:07 Neut % (Auto) 79.6 % (45-73) H 09/15/20 07:07 Lymph % (Auto) 13.5 % (20-40) L 09/15/20 07:07 [place] % (Auto) 5.6 % (2-11) 09/15/20 07:07 Eos % (Auto) 0.7 % (0-4) 09/15/20 07:07 Baso % (Auto) 0.2 % (0-2) 09/15/20 07:07 Lymph # (Auto) 1.5 X10*3/uL (1.2-4.9) 09/15/20 07:07 [place] # (Auto) 0.6 X10*3/uL (0.1-1.2) 09/15/20 07:07 Eos # (Auto) 0.1 X10*3/uL (0.0-0.4) 09/15/20 07:07 Baso # (Auto) 0.0 X10*3/uL (0.0-0.2) 09/15/20 07:07 Abs Immat Gran (auto) 0.04 X10*3/uL (0.00-0.03) H 09/15/20 07:07 Absolute Neuts (auto) 8.8 X10*3/uL (2.0-8.3) H 09/15/20 07:07 Absolute Nucleated RBC 0.000 X10*3/uL (0.0-0.012) 09/17/20 08:16 Nucleated RBC % (auto) 0.0 /100WBC (0.0-0.2) 09/17/20 08:16 PT 13.3 SEC (10.8-13.0) H 09/13/20 09:04 INR 1.1 (0.9-1.1) 09/13/20 09:04 Sodium 141 mmol/L (135-145) 09/17/20 08:16 Potassium 4.4 mmol/l (3.3-5.1) 09/17/20 08:16 Chloride 105 mmol/L (96-108) 09/17/20 08:16 Carbon Dioxide 29 mmol/L (22-29) 09/17/20 08:16 Anion Gap 11 (12-20) L 09/17/20 08:16 BUN 35 mg/dL (9-16) H 09/17/20 08:16 Creatinine 1.75 mg/dL (0.5-1.4) H 09/17/20 08:16 Estim Creat Clear Calc 39.3 09/17/20 08:16 Estimated GFR 38 09/17/20 08:16 POC Glucose 118 mg/dL (60-115) H 09/19/20 08:54 Random Glucose 119 mg/dL (60-115) H D 09/17/20 08:16 Fasting Glucose 148 mg/dL (60-99) H 09/15/20 07:07 Calcium 8.1 mg/dL (8.4-10.2) L 09/17/20 08:16 Total Bilirubin 0.8 mg/dL (0.0-1.0) 09/13/20 09:03 Direct Bilirubin 0.4 mg/dL (0.0-0.5) 09/13/20 09:03 AST 28 U/L (5-37) 09/13/20 09:03 ALT 32 U/L (0-40) 09/13/20 09:03 Alkaline Phosphatase 103 U/L (39-117) 09/13/20 09:03 Troponin I High Sens 43.9 ng/L (<3.5-35.0) H 09/13/20 09:03 Total Protein 6.8 g/dL (6.5-8.0) 09/13/20 09:03 Albumin 3.8 g/dL (3.5-5.0) 09/13/20 09:03 TSH 2.59 mIU/mL (0.32-4.0) 09/14/20 07:02 Cortisol 33.1 mcg/dL H 09/14/20 07:02 Urine Color YELLOW 09/16/20 14:26 Urine Appearance HAZY 09/16/20 14:26 Urine pH 7.0 (5.0-8.0) 09/16/20 14:26 Ur Specific [place] 1.025 (1.005-1.025) 09/16/20 14:26 Urine Protein 2+ MG/DL (NEG-TRACE) H 09/16/20 14:26 Urine Glucose (UA) 100 MG/DL (NEG) H 09/16/20 14:26 Urine Ketones 5 MG/DL (NEG) 09/16/20 14:26 Urine Blood 3+ (NEG) H 09/16/20 14:26 Urine Nitrite NEG (NEG) 09/16/20 14:26 Ur Leukocyte Esterase NEG (NEG) 09/16/20 14:26 Urine RBC TNTC /HPF (0) H 09/16/20 14:26 Urine WBC 5-9 /HPF (0-4) H 09/16/20 14:26 Ur Squamous Epith Cells 1+ /LPF 09/16/20 14:26 Amorphous Sediment 2+ /LPF 09/13/20 10:13 Urine Bacteria 1+ /LPF 09/16/20 14:26 Urine Mucus TRACE /LPF 09/16/20 14:26 COVID-19 ([facility]) Negative (Negative) 09/13/20 10:54 COVID-19 Clin Com See Note 09/13/20 10:54 Discharge Plan Discharge Patient Disposition: Xfer SNF Referrals: [facility] [Other] (BLS TRANSPORTATION) [facility] [Outside] - 2 Weeks (SHORT TERM REHAB, [facility] UN[facility] ) Physician,Unknown [Primary Care Provider] - Discharge Medications: New haloperidol 1 mg Tablet 1 mg PO TID PRN (Reason: Agitation) Qty: 15 RF: 0 omeprazole 40 mg Capsule,Delayed Release(Dr/Ec) 40 mg PO DAILY@0630 Qty: 30 RF: 0 mirtazapine 7.5 mg Tablet 15 mg PO BEDTIME Qty: 30 RF: 0 Metamucil Fiber Singles 3.4 gram Powder In Packet 3.4 g PO DAILY Qty: 30 RF: 0 Continued Humalog U-100 Insulin 4 units subcut TIDWMEAL RF: 0 nystatin 100,000 unit/gram Powder 100,000 unit TOPICAL BID RF: 0 aspirin 325 mg Tablet 325 mg PO DAILY RF: 0 Lantus Solostar U-100 Insulin 100 unit/mL (3 mL) Insulin Pen 6 unit SUBCUT DAILY RF: 0 lorazepam 1 mg Tablet 1 mg PO BEDTIME RF: 0 lorazepam 1 mg Tablet 1 mg PO BID PRN (Reason: Agitation) RF: 0 magnesium hydroxide [Milk of Magnesia] 400 mg/5 mL Suspension 30 ml PO DAILY PRN (Reason: Constipation) RF: 0 acetaminophen 325 mg Tablet 650 mg PO Q6H MDD 3 gm PRN (Reason: Fever Or Pain) RF: 0 bisacodyl 10 mg Suppository 10 mg NV DAILY PRN (Reason: Constipation) RF: 0 Discontinued mirtazapine 7.5 mg Tablet 7.5 mg PO BEDTIME RF: 0 metoprolol tartrate 25 mg PO BID RF: 0 haloperidol [Haldol] 2 mg Tablet 2 mg PO TID PRN (Reason: Agitation) RF: 0 Discharge Orders: Discharge Order (Routine); Ordered 09/19/20 Ordered By: Yaya Grayson Diet: diabetic diet Activity on Discharge: As tolerated Activity Restrictions/Additional Instructions: pt alert to person , confused to place time situation .pt can be restless in bed . pt takes pills crushed in applesauce . Visit Report Forms: Patient Portal Discharge page Care Plan Goals: Follow blood pressure closely if noted to have elevated blood pressure make patient sit up and recheck blood pressure, patient has urinary incontinence Health Concerns: Dementia with behavioral issues follow-up with psychiatry to adjust medication as needed Plan of Treatment: Close outpatient follow-up with PCP and Psychiatry
[2020-09-19 11:26] LABS: COVID-19 Test Negative (Negative)
--- NOTE | 2020-09-19 11:46 | MHC.CM.PN ---
Addendum entered by Yokasta Bradford RN 09/19/20 15:37: IMM REVIEWED W/PTS DEMI FLANNERY TO SEND VIA CERTIFIED MAIL Addendum entered by Yokasta Bradford RN 09/19/20 12:08: CM received call from pt's and was updated with pt's status and discharge plan for 12:30pm. Original Note: Pt discharging today, returning to [facility], [facility] for BLS transport. Message left with pt's /HCP Indira regarding discharge. [facility] updated with discharge summary and Covid test results via [employer].
== END 2020-09-19 12:35 | disposition skilled nursing facility (03) | DRG 683 ==
LOC: HO.ED 12:13 → HO.S3 14:07
PROVIDERS: Hospitalist; Admitting Provider Internal Medicine; Emergency Provider Emergency Medicine Emergency Medical Services; Visit Provider Hospitalist
DX: N17.9 Acute kidney failure, unspecified (principal); F03.91 Unspecified dementia, unspecified severity, with behavioral disturbance; I95.1 Orthostatic hypotension; N18.4 Chronic kidney disease, stage 4 (severe); Z20.828 Contact with and (suspected) exposure to other viral communicable diseases; R33.9 Retention of urine, unspecified; K59.00 Constipation, unspecified; R31.9 Hematuria, unspecified; I12.9 Hypertensive chronic kidney disease with stage 1 through stage 4 chronic kidney disease, or unspecified chronic kidney disease; E11.22 Type 2 diabetes mellitus with diabetic chronic kidney disease; Z79.4 Long term (current) use of insulin; Z79.82 Long term (current) use of aspirin; Z79.899 Other long term (current) drug therapy; Z66 Do not resuscitate
CPT/HCPCS: 36415; 70450; 71045; 72125; 74176; 80048; 80076; 81001; 82533; 82947; 84443; 84484; 85025; 85027; 85610; 87086; 87635; 93005; 96360; 97162; 99285; 99291; J0696; J1200; J1650; J2060; Q0163